=== PATIENT | female | born 1955 | race Caucasian/White ===

== ENCOUNTER 2018-07-09 14:39 | Inpatient (IN) | payer MEDICAID ==
[~2018-07-09] VITALS: Ht 160 cm; Wt 76.2 kg
[2018-07-09 15:57] VITALS: BP 153/85
[2018-07-09] MEDS ORDERED: METF850T10 PO (16:33)
[2018-07-09] MEDS ORDERED: METO50TA82 PO (16:33)
[2018-07-09] MEDS ORDERED: GLIP10TA13 PO (16:33)
[2018-07-09] MEDS ORDERED: GABA300C10 PO (16:42)
[2018-07-09] MEDS ORDERED: ATOR20TA37 PO (16:42)
[2018-07-09] MEDS ORDERED: ONDANSETRON 2MG/ML, 2ML IVPush PRN (18:00)
[2018-07-09] MEDS ORDERED: ONDANSETRON ODT 4 MG PO PRN (18:00)
[2018-07-09] MEDS ORDERED: METOPROLOL TARTRATE 25 MG TABLET PO SCH (18:00)
[2018-07-09] MEDS ORDERED: morphine SULFATE 10 MG/ML, 1ML IVPush PRN (18:00)
[2018-07-09] MEDS ORDERED: NITROGLYCERIN 0.4 MG BOTTLE (25 TABS) SL PRN (18:00)
[2018-07-09 18:29] LABS: BASOPHILS # (AUTO) 0.03 x10^3/uL (0-0.1); BASOPHILS % (AUTO) 0 % (0-1); EOSINOPHILS % (AUTO) 0 % (1-7); LYMPHOCYTES # (AUTO) 0.47 x10^3/uL (1-3.4); LYMPHOCYTES % (AUTO) 6 % (22-44); MD NO; MEAN CORPUSCULAR HEMOGLOBIN 31.3 pg (27.0-34.8); MEAN CORPUSCULAR HGB CONC 32.7 g/dL (32.4-35.8); MEAN CORPUSCULAR VOLUME 95.6 fL (80-100); MEAN PLATELET VOLUME 9.9 fL (7.4-10.4); MONOCYTES # (AUTO) 0.13 x10^3/uL (0.2-0.8); MONOCYTES % (AUTO) 2 % (2-9); NEUTROPHILS # (AUTO) 7.31 x10^3/uL (1.8-6.8); NEUTROPHILS % (AUTO) 92 % (42-75); PLATELET COUNT 235 x10^3/uL (130-400); RED BLOOD COUNT 4.92 x10^6/uL (3.82-5.3); RED CELL DISTRIBUTION WIDTH 16.2 % (9.6-15.2)
[2018-07-09] MEDS ORDERED: PLEASE ENTER HEIGHT AND WEIGHT MC SCH (18:30)
[2018-07-09 18:35] LABS: ALANINE AMINOTRANSFERASE 21 U/L (12-78); ALBUMIN 3.7 g/dL (3.4-5.0); ANION GAP 7 mmol/L (5-15); CALCIUM 9.1 mg/dL (8.5-10.1); CHLORIDE 100 mmol/L (98-107); CREATININE 1.27 mg/dL (0.55-1.02)
[2018-07-09 18:39] LABS: ALKALINE PHOSPHATASE 129 U/L (45-117); BILIRUBIN,TOTAL 1.8 mg/dL (0.2-1.0); TOTAL PROTEIN 7.8 g/dL (6.4-8.2); TROPONIN I 0.116 ng/mL (0.000-0.045)
[2018-07-09] MEDS: INSULIN LISPRO 100 UNITS/ML, PEN SQ-INSULIN SCH ×2 (18:39→21:29)
[2018-07-09] MEDS: CARVEDILOL 6.25 MG TABLET PO SCH (18:39)
[2018-07-09 18:42] LABS: HEMOGLOBIN A1C 6.4 % (4.2-6.3)
[2018-07-09 18:52] LABS: HCT (SEDRATE) 47.1 % (34.6-47.8)
[2018-07-09 19:05] VITALS: BP 117/75
[2018-07-09] MEDS ORDERED: POTASSIUM CHLORIDE 20 MEQ PACKET PO ONE (19:30)
[2018-07-09] MEDS ORDERED: ALBUTEROL SULFATE 2.5 MG/3 ML NPPB PRN (20:30)
[2018-07-09] MEDS ORDERED: INSULIN LISPRO 100 UNITS/ML, PEN SQ-INSULIN SCH (21:00)
[2018-07-09] MEDS: ISOSORBIDE DINITRATE 10 MG TABLET PO SCH (21:28)
[2018-07-09] MEDS: ATORVASTATIN 80 MG TABLET PO SCH (21:28)
[2018-07-10 03:00] VITALS: BP 109/54
[2018-07-10] MEDS: CARVEDILOL 6.25 MG TABLET PO SCH ×2 (05:27→18:19)
[2018-07-10 05:33] LABS: ANION GAP 3 mmol/L (5-15); CALCIUM 8.9 mg/dL (8.5-10.1); CHLORIDE 103 mmol/L (98-107)
[2018-07-10 05:38] LABS: BASOPHILS % (AUTO) 0 % (0-1); EOSINOPHILS % (AUTO) 0 % (1-7); LYMPHOCYTES # (AUTO) 0.78 x10^3/uL (1-3.4); LYMPHOCYTES % (AUTO) 7 % (22-44); MD NO; MEAN CORPUSCULAR HEMOGLOBIN 31.5 pg (27.0-34.8); MEAN CORPUSCULAR HGB CONC 33.3 g/dL (32.4-35.8); MEAN CORPUSCULAR VOLUME 94.6 fL (80-100); MEAN PLATELET VOLUME 9.7 fL (7.4-10.4); MONOCYTES # (AUTO) 0.82 x10^3/uL (0.2-0.8); MONOCYTES % (AUTO) 7 % (2-9); NEUTROPHILS # (AUTO) 10.42 x10^3/uL (1.8-6.8); NEUTROPHILS % (AUTO) 87 % (42-75); PLATELET COUNT 226 x10^3/uL (130-400); RED BLOOD COUNT 4.46 x10^6/uL (3.82-5.3); RED CELL DISTRIBUTION WIDTH 16.4 % (9.6-15.2)
[2018-07-10 05:40] LABS: ALANINE AMINOTRANSFERASE 17 U/L (12-78); ALKALINE PHOSPHATASE 99 U/L (45-117); BILIRUBIN,TOTAL 1.7 mg/dL (0.2-1.0); CREATININE 0.92 mg/dL (0.55-1.02); TOTAL PROTEIN 6.3 g/dL (6.4-8.2)
[2018-07-10] MEDS: INSULIN LISPRO 100 UNITS/ML, PEN SQ-INSULIN SCH ×4 (07:00→21:42)
[2018-07-10 08:15] VITALS: BP 114/65
[2018-07-10] MEDS: ISOSORBIDE DINITRATE 10 MG TABLET PO SCH ×3 (08:21→21:38)
[2018-07-10 09:42] LABS: TROPONIN I 0.181 ng/mL (0.000-0.045)
[2018-07-10] MEDS ORDERED: OMNIPAQUE 350 MG/ML, 100ML BOTTLE ONE (12:51)
[2018-07-10 14:33] VITALS: BP 118/80
[2018-07-10] MEDS: NICOTINE 21 MG/24 HR PATCH.TD24 TD SCH (16:17)
[2018-07-10 18:17] VITALS: BP 100/69
[2018-07-10 19:48] VITALS: BP 103/71
[2018-07-10] MEDS: ATORVASTATIN 80 MG TABLET PO SCH (21:38)
[2018-07-11 02:30] VITALS: BP 115/78
[2018-07-11 04:40] VITALS: BP 123/81
[2018-07-11] MEDS: CARVEDILOL 6.25 MG TABLET PO SCH ×2 (04:41→17:24)
[2018-07-11] MEDS: ACETAMINOPHEN 325 MG TABLET PO PRN ×2 (04:41→20:39)
[2018-07-11 04:58] LABS: ANION GAP 5 mmol/L (5-15); CALCIUM 8.5 mg/dL (8.5-10.1); CHLORIDE 104 mmol/L (98-107); CREATININE 1.04 mg/dL (0.55-1.02)
[2018-07-11 05:01] LABS: BASOPHILS # (AUTO) 0.03 x10^3/uL (0-0.1); BASOPHILS % (AUTO) 0 % (0-1); EOSINOPHILS # (AUTO) 0.08 x10^3/uL (0-0.4); EOSINOPHILS % (AUTO) 1 % (1-7); LYMPHOCYTES # (AUTO) 1.45 x10^3/uL (1-3.4); LYMPHOCYTES % (AUTO) 15 % (22-44); MD NO; MEAN CORPUSCULAR HEMOGLOBIN 31.5 pg (27.0-34.8); MEAN CORPUSCULAR HGB CONC 32.7 g/dL (32.4-35.8); MEAN CORPUSCULAR VOLUME 96.3 fL (80-100); MEAN PLATELET VOLUME 9.6 fL (7.4-10.4); MONOCYTES # (AUTO) 1.01 x10^3/uL (0.2-0.8); MONOCYTES % (AUTO) 10 % (2-9); NEUTROPHILS # (AUTO) 7.36 x10^3/uL (1.8-6.8); NEUTROPHILS % (AUTO) 74 % (42-75); PLATELET COUNT 203 x10^3/uL (130-400); RED BLOOD COUNT 4.66 x10^6/uL (3.82-5.3); RED CELL DISTRIBUTION WIDTH 16.8 % (9.6-15.2)
[2018-07-11 06:43] VITALS: BP 113/81
[2018-07-11] MEDS: INSULIN LISPRO 100 UNITS/ML, PEN SQ-INSULIN SCH ×4 (07:00→20:40)
[2018-07-11] MEDS: ISOSORBIDE DINITRATE 10 MG TABLET PO SCH ×3 (09:51→20:38)
[2018-07-11] MEDS: NICOTINE 21 MG/24 HR PATCH.TD24 TD SCH (12:44)
[2018-07-11 13:55] VITALS: BP 100/67
[2018-07-11 16:58] LABS: ANION GAP 8 mmol/L (5-15); CALCIUM 8.9 mg/dL (8.5-10.1); CHLORIDE 101 mmol/L (98-107)
[2018-07-11 19:15] VITALS: BP 101/68
[2018-07-11] MEDS: ATORVASTATIN 80 MG TABLET PO SCH (20:38)
[2018-07-12 00:53] VITALS: BP 99/66
[2018-07-12 05:28] LABS: BASOPHILS # (AUTO) 0.05 x10^3/uL (0-0.1); BASOPHILS % (AUTO) 1 % (0-1); EOSINOPHILS # (AUTO) 0.05 x10^3/uL (0-0.4); EOSINOPHILS % (AUTO) 1 % (1-7); LYMPHOCYTES # (AUTO) 1.31 x10^3/uL (1-3.4); LYMPHOCYTES % (AUTO) 16 % (22-44); MD NO; MEAN CORPUSCULAR HEMOGLOBIN 30.9 pg (27.0-34.8); MEAN CORPUSCULAR HGB CONC 32.2 g/dL (32.4-35.8); MEAN CORPUSCULAR VOLUME 96.3 fL (80-100); MEAN PLATELET VOLUME 9.6 fL (7.4-10.4); MONOCYTES # (AUTO) 1.05 x10^3/uL (0.2-0.8); MONOCYTES % (AUTO) 13 % (2-9); NEUTROPHILS # (AUTO) 5.83 x10^3/uL (1.8-6.8); NEUTROPHILS % (AUTO) 70 % (42-75); PLATELET COUNT 228 x10^3/uL (130-400); RED BLOOD COUNT 4.76 x10^6/uL (3.82-5.3); RED CELL DISTRIBUTION WIDTH 16.8 % (9.6-15.2)
[2018-07-12] MEDS: CARVEDILOL 6.25 MG TABLET PO SCH ×2 (05:28→17:24)
[2018-07-12 05:29] VITALS: BP 115/81
[2018-07-12 05:33] LABS: CHLORIDE 104 mmol/L (98-107)
[2018-07-12 05:38] LABS: ANION GAP 4 mmol/L (5-15); CALCIUM 8.6 mg/dL (8.5-10.1); CREATININE 0.97 mg/dL (0.55-1.02)
[2018-07-12] MEDS: INSULIN LISPRO 100 UNITS/ML, PEN SQ-INSULIN SCH ×4 (07:00→22:24)
[2018-07-12 08:00] VITALS: BP 118/86
[2018-07-12] MEDS: ISOSORBIDE DINITRATE 10 MG TABLET PO SCH ×3 (08:37→22:18)
[2018-07-12] MEDS: NICOTINE 21 MG/24 HR PATCH.TD24 TD SCH (12:08)
[2018-07-12 13:34] VITALS: BP 121/80
[2018-07-12 19:51] VITALS: BP 106/73
[2018-07-12] MEDS: ATORVASTATIN 80 MG TABLET PO SCH (22:14)
[2018-07-13 01:47] VITALS: BP 121/81
[2018-07-13] MEDS: CARVEDILOL 6.25 MG TABLET PO SCH ×2 (06:23→18:05)
[2018-07-13] MEDS: INSULIN LISPRO 100 UNITS/ML, PEN SQ-INSULIN SCH ×4 (07:00→21:25)
[2018-07-13 07:57] VITALS: BP 114/80
[2018-07-13] MEDS ORDERED: SODIUM CHLORIDE 0.9% 1,000 ML IV ONE (08:30)
[2018-07-13] MEDS: NICOTINE 21 MG/24 HR PATCH.TD24 TD SCH (11:08)
[2018-07-13] MEDS ORDERED: POTASSIUM CHLORIDE 20 MEQ TAB.ER.PRT PO ONE (14:00)
[2018-07-13] MEDS: SPIRONOLACTONE 25 MG TABLET PO SCH (14:01)
[2018-07-13] MEDS: FUROSEMIDE 20 MG TABLET PO SCH (14:01)
[2018-07-13] MEDS: ISOSORBIDE DINITRATE 10 MG TABLET PO SCH ×3 (14:02→21:09)
[2018-07-13 19:28] VITALS: BP 140/86
[2018-07-13] MEDS: ATORVASTATIN 80 MG TABLET PO SCH (21:10)
[2018-07-13] MEDS: APIXABAN 5 MG TABLET PO SCH (21:12)
[2018-07-13] MEDS: GABAPENTIN 300 MG CAPSULE PO SCH (21:24)
[2018-07-14 01:39] VITALS: BP 114/76
[2018-07-14 05:45] VITALS: BP 118/73
[2018-07-14] MEDS: CARVEDILOL 6.25 MG TABLET PO SCH ×2 (05:51→18:24)
[2018-07-14 07:43] VITALS: BP 116/75
[2018-07-14] MEDS: INSULIN LISPRO 100 UNITS/ML, PEN SQ-INSULIN SCH ×4 (08:27→20:54)
[2018-07-14] MEDS: APIXABAN 5 MG TABLET PO SCH ×2 (08:27→09:44)
[2018-07-14] MEDS: SPIRONOLACTONE 25 MG TABLET PO SCH (08:28)
[2018-07-14] MEDS: FUROSEMIDE 20 MG TABLET PO SCH (08:28)
[2018-07-14] MEDS: GABAPENTIN 300 MG CAPSULE PO SCH ×3 (08:28→20:52)
[2018-07-14] MEDS: ISOSORBIDE DINITRATE 10 MG TABLET PO SCH ×3 (08:29→20:52)
[2018-07-14 10:07] LABS: ANION GAP 5 mmol/L (5-15); CALCIUM 8.7 mg/dL (8.5-10.1); CHLORIDE 102 mmol/L (98-107); CREATININE 0.92 mg/dL (0.55-1.02)
[2018-07-14] MEDS ORDERED: SODIUM CHLORIDE 0.9% 1,000 ML IV SCH (11:00)
[2018-07-14] MEDS ORDERED: PROPOFOL 10 MG/ML, 50ML ONE (11:03)
[2018-07-14 12:53] VITALS: BP 112/76
[2018-07-14] MEDS: NICOTINE 21 MG/24 HR PATCH.TD24 TD SCH (16:40)
[2018-07-14 18:37] VITALS: BP_SYST 121; BP_SYST 124; BP_DIAS 71; BP_DIAS 81
[2018-07-14] MEDS ORDERED: ISOSORBIDE DINITRATE 20 MG TABLET ONE (20:32)
[2018-07-14] MEDS: ATORVASTATIN 80 MG TABLET PO SCH (20:51)
[2018-07-15 01:30] VITALS: BP 108/54
[2018-07-15] MEDS: CARVEDILOL 6.25 MG TABLET PO SCH ×2 (05:33→21:01)
[2018-07-15 06:14] LABS: BASOPHILS # (AUTO) 0.06 x10^3/uL (0-0.1); BASOPHILS % (AUTO) 1 % (0-1); EOSINOPHILS # (AUTO) 0.04 x10^3/uL (0-0.4); EOSINOPHILS % (AUTO) 1 % (1-7); LYMPHOCYTES # (AUTO) 1.51 x10^3/uL (1-3.4); LYMPHOCYTES % (AUTO) 19 % (22-44); MD NO; MEAN CORPUSCULAR HEMOGLOBIN 30.4 pg (27.0-34.8); MEAN CORPUSCULAR HGB CONC 31.7 g/dL (32.4-35.8); MEAN CORPUSCULAR VOLUME 95.7 fL (80-100); MEAN PLATELET VOLUME 10.1 fL (7.4-10.4); MONOCYTES # (AUTO) 1.17 x10^3/uL (0.2-0.8); MONOCYTES % (AUTO) 15 % (2-9); NEUTROPHILS # (AUTO) 5.04 x10^3/uL (1.8-6.8); NEUTROPHILS % (AUTO) 65 % (42-75); PLATELET COUNT 185 x10^3/uL (130-400); RED BLOOD COUNT 4.76 x10^6/uL (3.82-5.3); RED CELL DISTRIBUTION WIDTH 16.5 % (9.6-15.2)
[2018-07-15 06:38] LABS: CHLORIDE 105 mmol/L (98-107)
[2018-07-15 06:46] LABS: ANION GAP 6 mmol/L (5-15); CALCIUM 8.8 mg/dL (8.5-10.1); CREATININE 0.94 mg/dL (0.55-1.02)
[2018-07-15] MEDS: INSULIN LISPRO 100 UNITS/ML, PEN SQ-INSULIN SCH ×4 (07:00→21:00)
[2018-07-15 07:59] VITALS: BP 99/59
[2018-07-15] MEDS: SPIRONOLACTONE 25 MG TABLET PO SCH (08:19)
[2018-07-15] MEDS: GABAPENTIN 300 MG CAPSULE PO SCH ×3 (08:19→20:59)
[2018-07-15] MEDS: FUROSEMIDE 20 MG TABLET PO SCH (08:19)
[2018-07-15 09:11] LABS: INTERNATIONAL NORMALIZED RATIO 1.08 (0.93-1.1); PROTHROMBIN TIME 11.3 Seconds (9.6-11.5)
[2018-07-15] MEDS: ISOSORBIDE DINITRATE 10 MG TABLET PO SCH ×3 (10:29→21:00)
[2018-07-15] MEDS: NICOTINE 21 MG/24 HR PATCH.TD24 TD SCH (11:23)
[2018-07-15 14:06] VITALS: BP 111/64
[2018-07-15] MEDS ORDERED: HEPARIN 1,000 UNITS/ML, 10ML ONE (14:12)
[2018-07-15] MEDS ORDERED: VERAPAMIL 2.5 MG/ML, 2ML ONE (14:12)
[2018-07-15] MEDS ORDERED: MIDAZOLAM 1 MG/ML, 2ML ONE ×2 (14:12→14:23)
[2018-07-15] MEDS ORDERED: FENTANYL PF 100 MCG/2ML ONE ×2 (14:12→14:24)
[2018-07-15] MEDS ORDERED: LIDOCAINE-MPF 1%, 5ML ONE (14:13)
[2018-07-15] MEDS ORDERED: LIDOCAINE 1%, 20ML ONE (14:14)
[2018-07-15 19:06] VITALS: BP 129/86
[2018-07-15] MEDS: ATORVASTATIN 80 MG TABLET PO SCH (20:59)
[2018-07-16 01:00] VITALS: BP 108/72
[2018-07-16 05:25] LABS: BASOPHILS # (AUTO) 0.04 x10^3/uL (0-0.1); BASOPHILS % (AUTO) 1 % (0-1); EOSINOPHILS # (AUTO) 0.04 x10^3/uL (0-0.4); EOSINOPHILS % (AUTO) 1 % (1-7); LYMPHOCYTES # (AUTO) 1.17 x10^3/uL (1-3.4); LYMPHOCYTES % (AUTO) 15 % (22-44); MD NO; MEAN CORPUSCULAR HEMOGLOBIN 30.4 pg (27.0-34.8); MEAN CORPUSCULAR HGB CONC 32.3 g/dL (32.4-35.8); MEAN CORPUSCULAR VOLUME 94.2 fL (80-100); MONOCYTES # (AUTO) 1.15 x10^3/uL (0.2-0.8); MONOCYTES % (AUTO) 15 % (2-9); NEUTROPHILS # (AUTO) 5.24 x10^3/uL (1.8-6.8); NEUTROPHILS % (AUTO) 69 % (42-75); PLATELET COUNT 181 x10^3/uL (130-400); RED BLOOD COUNT 4.97 x10^6/uL (3.82-5.3); RED CELL DISTRIBUTION WIDTH 16.5 % (9.6-15.2)
[2018-07-16 05:34] LABS: ANION GAP 5 mmol/L (5-15); CHLORIDE 105 mmol/L (98-107); CREATININE 0.76 mg/dL (0.55-1.02)
[2018-07-16] MEDS: CARVEDILOL 6.25 MG TABLET PO SCH (06:03)
[2018-07-16 06:40] VITALS: BP 105/71
[2018-07-16] MEDS: INSULIN LISPRO 100 UNITS/ML, PEN SQ-INSULIN SCH ×2 (08:30→12:39)
[2018-07-16] MEDS: FUROSEMIDE 20 MG TABLET PO SCH (10:03)
[2018-07-16] MEDS: ISOSORBIDE DINITRATE 10 MG TABLET PO SCH (10:04)
[2018-07-16] MEDS: SPIRONOLACTONE 25 MG TABLET PO SCH (10:04)
[2018-07-16] MEDS: GABAPENTIN 300 MG CAPSULE PO SCH (10:04)
[2018-07-16] MEDS ORDERED: APIXABAN 5 MG TABLET PO SCH (11:00)
[2018-07-16] MEDS: NICOTINE 21 MG/24 HR PATCH.TD24 TD SCH (12:42)
[2018-07-16 14:00] VITALS: BP 100/68
[2018-07-16] MEDS ORDERED: ATOR20TA37 PO (15:09)
[2018-07-16] MEDS ORDERED: FURO20TA3 PO (15:09)
[2018-07-16] MEDS ORDERED: CARV6.2512 PO (15:09)
[2018-07-16] MEDS ORDERED: APIX5TAB PO (15:09)
[2018-07-16] MEDS ORDERED: ISOS10TA2 PO (15:09)
== END 2018-07-16 17:13 | disposition home or self-care (01) | DRG 287 ==
LOC: 5SO 15:47 → DCLOUNGE 07-16 17:00
PROVIDERS: ADMIT Internal Medicine; ATTEND Internal Medicine
PROC: 4A023N8 Measurement of Cardiac Sampling and Pressure, Bilateral, Percutaneous Approach (ICD-10-PCS; principal; 2018-07-15)
PROC: B2111ZZ Fluoroscopy of Multiple Coronary Arteries using Low Osmolar Contrast (ICD-10-PCS; 2018-07-15)
PROC: B2161ZZ Fluoroscopy of Right and Left Heart using Low Osmolar Contrast (ICD-10-PCS; 2018-07-15)
DX: I31.3 Pericardial effusion (noninflammatory) (principal); I48.92 Unspecified atrial flutter; I50.30 Unspecified diastolic (congestive) heart failure; Q21.1 Atrial septal defect; J44.9 Chronic obstructive pulmonary disease, unspecified; E11.40 Type 2 diabetes mellitus with diabetic neuropathy, unspecified; E78.5 Hyperlipidemia, unspecified; F17.200 Nicotine dependence, unspecified, uncomplicated; I11.0 Hypertensive heart disease with heart failure; I27.29 Other secondary pulmonary hypertension; I48.91 Unspecified atrial fibrillation; I73.00 Raynaud's syndrome without gangrene; Z82.5 Family history of asthma and other chronic lower respiratory diseases; Z83.3 Family history of diabetes mellitus; Z90.89 Acquired absence of other organs; Z90.721 Acquired absence of ovaries, unilateral
CPT/HCPCS: 36415; 71260; 74177; 80048; 80053; 82962; 83036; 83735; 83880; 84484; 85025; 85610; 85651; 87040; 93005; 93308; 93312; 93321; 93325; 93460; 93970; 99156; 99157; C1769; C1894; C8929; G0378; J1644; J2250; J2704; J3010; J3490; Q9957; Q9967; J1815; J7030

== ENCOUNTER 2018-09-15 10:18 | Outpatient (CLI) | payer MEDICAID ==
[~2018-09-15 10:18] MED LIST: APIX5TAB PO; ATOR20TA37 PO; CARV6.2512 PO; FURO20TA3 PO; GABA300C10 PO; GLIP10TA13 PO; ISOS10TA2 PO; METF850T10 PO; METO50TA82 PO
== END 2018-09-15 23:59 | disposition home or self-care (01) ==
LOC: CVU 10:18
PROVIDERS: ATTEND Internal Medicine Cardiovascular Disease
DX: I08.8 Other rheumatic multiple valve diseases (principal); I10 Essential (primary) hypertension; E78.5 Hyperlipidemia, unspecified; I31.3 Pericardial effusion (noninflammatory)
CPT/HCPCS: 93306

== ENCOUNTER 2018-09-22 10:57 | Day surgery (SDC) | payer MEDICAID ==
[~2018-09-22] VITALS: Ht 160 cm; Wt 80.5 kg
[~2018-09-22 10:57] MED LIST changes: +PROPOFOL 10 MG/ML, 20ML ONE
[2018-09-22 11:40] VITALS: BP 113/87
== END 2018-09-22 14:05 | disposition home or self-care (01) ==
LOC: CACL 10:57
PROVIDERS: ATTEND Internal Medicine Cardiovascular Disease
DX: I48.91 Unspecified atrial fibrillation (principal); I48.92 Unspecified atrial flutter; E11.9 Type 2 diabetes mellitus without complications; J44.9 Chronic obstructive pulmonary disease, unspecified; I07.1 Rheumatic tricuspid insufficiency; E78.2 Mixed hyperlipidemia; I31.3 Pericardial effusion (noninflammatory); Z79.82 Long term (current) use of aspirin; Z79.84 Long term (current) use of oral hypoglycemic drugs
CPT/HCPCS: 92960; J2704

== ENCOUNTER 2018-11-18 10:33 | Outpatient (CLI) | payer MEDICAID | END 2018-11-18 23:59 | disposition home or self-care (01) | LOC: CVU 10:33 | PROVIDERS: ATTEND Internal Medicine Cardiovascular Disease | DX: I08.1 Rheumatic disorders of both mitral and tricuspid valves (principal); I31.3 Pericardial effusion (noninflammatory); I10 Essential (primary) hypertension; E78.5 Hyperlipidemia, unspecified; I25.2 Old myocardial infarction; Z87.891 Personal history of nicotine dependence | CPT/HCPCS: 93308; 93321; 93325 ==

== ENCOUNTER → 2019-02-26 | Outpatient (CLI) | payer MEDICAID ==
[~2019-02-26] MED LIST changes: -PROPOFOL 10 MG/ML, 20ML ONE
== END | disposition home or self-care (01) ==
LOC: CFH 10:24
PROVIDERS: ATTEND Registered Nurse
DX: I08.3 Combined rheumatic disorders of mitral, aortic and tricuspid valves (principal); I31.3 Pericardial effusion (noninflammatory); I10 Essential (primary) hypertension; E78.5 Hyperlipidemia, unspecified; I25.2 Old myocardial infarction; J44.9 Chronic obstructive pulmonary disease, unspecified; E11.9 Type 2 diabetes mellitus without complications; Z85.3 Personal history of malignant neoplasm of breast; Z87.891 Personal history of nicotine dependence; Z83.3 Family history of diabetes mellitus; Z82.49 Family history of ischemic heart disease and other diseases of the circulatory system; Z82.5 Family history of asthma and other chronic lower respiratory diseases
CPT/HCPCS: 93306

== ENCOUNTER 2019-11-10 08:13 | Outpatient (CLI) | payer MEDICARE, MEDICAID | END 2019-11-10 23:59 | disposition home or self-care (01) | LOC: CFH 08:13 | PROVIDERS: ATTEND Internal Medicine Cardiovascular Disease | DX: I08.3 Combined rheumatic disorders of mitral, aortic and tricuspid valves (principal); I11.9 Hypertensive heart disease without heart failure; R93.1 Abnormal findings on diagnostic imaging of heart and coronary circulation | CPT/HCPCS: 93306 ==

== ENCOUNTER 2020-07-27 10:01 | Outpatient (CLI) | payer MEDICARE, MEDICAID | END 2020-07-27 23:59 | disposition home or self-care (01) | LOC: CVU 10:01 | PROVIDERS: ATTEND Internal Medicine Cardiovascular Disease | DX: I08.8 Other rheumatic multiple valve diseases (principal); I11.9 Hypertensive heart disease without heart failure; I31.3 Pericardial effusion (noninflammatory) | CPT/HCPCS: 93306 ==